=== PATIENT | male | born 1970 | race Caucasian/White ===

== ENCOUNTER 2019-10-24 13:31 | Emergency (ER) | payer OTHER ==
[~2019-10-24] VITALS: Ht 177.8 cm; Wt 80.4 kg
[2019-10-24] MEDS ORDERED: IV NORMAL SALINE 1,000ML 1,000 ML IV SCH (13:49)
--- NOTE | 2019-10-24 13:53 | PHYS DOC ---
Past History Past Medical History: Depression Smoking: Cigarettes Drug Use: Marijuana Adult General Chief Complaint Chief Complaint: NAUSEA/VOMITING/DIARRHEA HPI HPI Patient is a 49-year-old male who presents to the emergency department for evaluation. He states he has been having recurrent episodes of vomiting for the past year, as well as frequent episodes of diarrhea. He states he began vomiting more frequently over the past few days, and had some blood in his emesis the past 2 days, although not every time. He reports some blood streaks mixed with his emesis, not vomiting pure blood. Denies any dizziness or lightheadedness or pain. He states he saw , a family physician, several months ago who prescribed an unknown medication that he is supposed to take to "coat his esophagus" but he is uncertain of the name of the medication. He does admit to smoking marijuana daily. I discussed importance of close follow-up and return precautions. Review of Systems Review of Systems Constitutional: Denies fever or chills [] Eyes: Denies change in visual acuity, redness, or eye pain [] HENT: Denies nasal congestion or sore throat [] Respiratory: Denies cough or shortness of breath [] Cardiovascular: The patient denies any shortness of breath, chest pain, palpitations, or orthopnea [] GI: No additional information not addressed in HPI [] : Denies dysuria or hematuria [] Musculoskeletal: Denies back pain or joint pain [] Integument: Denies rash or skin lesions [] Neurologic: Denies headache, focal weakness or sensory changes [] Endocrine: Denies polyuria or polydipsia [] All other systems were reviewed and found to be within normal limits, except as documented in this note. Allergies Allergies Allergies Coded Allergies Type Severity Reaction Last Updated Verified No Known Drug Allergies 10/24/19 No Physical Exam Physical Exam PHYSICAL EXAM: CONSTITUTIONAL: Well developed, well nourished HEAD: normocephalic, atraumatic EENT: PERRL, EOMI. Conjunctivae normal color, sclerae non-icteric; moist mucous membranes. NECK: Supple, non-tender; no meningismus. LUNGS: Lungs CTA, breathing even and unlabored. Normal air movement. HEART: Regular rate and rhythm, no murmur CHEST: No deformity; non-tender ABDOMEN: The abdomen is soft, and non-tender, no masses or bruits. EXTREM: Normal ROM; no deformity, no calf tenderness. Normal pulses palpable in all extremities. There is no pedal edema. SKIN: No rash; no diaphoresis NEURO: Alert; normal speech and cognition; CN's grossly intact; strength grossly intact without focal deficit. BACK: No CVA TTP. Current Patient Data Vital Signs Vital Signs Date Time Temp Pulse Resp B/P (MAP) Pulse Ox O2 Delivery O2 Flow Rate FiO2 10/24/19 13:42 99.3 98 18 146/105 (119) 99 Room Air Lab Results Laboratory Tests Test 10/24/19 14:08 10/24/19 14:21 White Blood Count 7.4 x10^3/uL Red Blood Count 5.88 x10^6/uL Hemoglobin 18.3 g/dL Hematocrit 55.0 % Mean Corpuscular Volume 94 fL Mean Corpuscular Hemoglobin 31 pg Mean Corpuscular Hemoglobin Concent 33 g/dL Red Cell Distribution Width 13.6 % Platelet Count 202 x10^3/uL Neutrophils (%) (Auto) 66 % Lymphocytes (%) (Auto) 25 % Monocytes (%) (Auto) 8 % Eosinophils (%) (Auto) 0 % Basophils (%) (Auto) 1 % Neutrophils # (Auto) 4.9 x10^3uL Lymphocytes # (Auto) 1.8 x10^3/uL Monocytes # (Auto) 0.6 x10^3/uL Eosinophils # (Auto) 0.0 x10^3/uL Basophils # (Auto) 0.1 x10^3/uL Sodium Level 135 mmol/L Potassium Level 3.2 mmol/L Chloride Level 95 mmol/L Carbon Dioxide Level 29 mmol/L Anion Gap 11 Blood Urea Nitrogen 22 mg/dL Creatinine 1.4 mg/dL Estimated GFR (Cockcroft-Gault) 54.3 BUN/Creatinine Ratio 16 Glucose Level 116 mg/dL Calcium Level 9.5 mg/dL Total Bilirubin 0.9 mg/dL Aspartate Amino Transf (AST/SGOT) 27 U/L Alanine Aminotransferase (ALT/SGPT) 26 U/L Alkaline Phosphatase 115 U/L Troponin I Quantitative < 0.017 ng/mL Total Protein 8.5 g/dL Albumin 4.2 g/dL Albumin/Globulin Ratio 1.0 Lipase 207 U/L Urine Collection Type Unknown Urine Color Sherrie Urine Clarity Hazy Urine pH 5.5 Urine Specific [place] >=1.030 Urine Protein Urine Glucose (UA) mg/dL Urine Ketones (Stick) mg/dL Urine Blood Urine Nitrite Urine Bilirubin Neg Urine Urobilinogen Dipstick mg/dL Urine Leukocyte Esterase Urine RBC 1-2 /HPF Urine WBC 1-4 /HPF Urine Squamous Epithelial Cells Few /LPF Urine Bacteria 0 /HPF Urine Hyaline Casts Many /HPF Urine Mucus Marked /LPF Urine Opiates Screen Neg Urine Methadone Screen Neg Urine Barbiturates Neg Urine Phencyclidine Screen Neg Urine Amphetamine/Methamphetamine Neg Urine Benzodiazepines Screen Neg Urine Cocaine Screen Neg Urine Cannabinoids Screen Pos Urine Ethyl Alcohol Neg Current Medications Medications (Trade) Dose Ordered Sig/Tarun Route PRN Reason Start Time Stop Time Status Last Admin Dose Admin Sodium Chloride 1,000 ml @ 1,000 mls/hr Q1H IV 10/24/19 13:49 10/24/19 14:48 DC 10/24/19 13:49 Potassium Chloride (Klor-Con) 40 meq 1X ONCE PO 10/24/19 15:30 10/24/19 15:32 DC 10/24/19 15:30 EKG EKG Normal sinus rhythm at a rate of 80 beats for minute, normal axis, normal intervals, nonspecific ST/T changes.[][] Radiology/Procedures Radiology/Procedures [] Course & Med Decision Making Course & Med Decision Making Pertinent Lab studies reviewed. (See chart for details) []3:50 PM: The patient's condition remained stable. He has not had any further emesis in the emergency department. I discussed test results with the patient, the importance of stopping marijuana abuse, the importance of close outpatient PCP and GI follow-up, and return precautions. Dragon Disclaimer Dragon Disclaimer This electronic medical record was generated, in whole or in part, using a voice recognition dictation system. Departure Departure: Impression: Primary Impression: Nausea, vomiting and diarrhea Additional Impression: Cannabis hyperemesis syndrome concurrent with and due to cannabis abuse Disposition: 01 HOME, SELF-CARE Condition: STABLE Referrals: COREY ORELLANA MD Patient Instructions: Diarrhea, Marijuana Abuse and Chemical Dependency, Nausea and Vomiting Scripts Ondansetron (ONDANSETRON ODT) 4 Mg Tab.rapdis 1 TAB PO PRN Q6-8HRS for N/V, #15 TAB Prov: WU SILVA MD 10/24/19 Problem Qualifiers WU SILVA MD Oct 24, 2019 13:53
--- NOTE | 2019-10-24 14:13 | EKG ---
[address] [address] Test Date: 2019-10-24 Test Time: 14:09:01 Pat Name: BELEM HUFFMAN Department: Room: Gender: M Head Chopper: : 1970 Requested By: WU SILVA Order Number: [id number] Reading MD: Measurements Intervals [place] Rate: 80 P: 52 [place]: 150 QRS: 40 QRSD: 88 T: 43 QT: 378 QTc: 440 Interpretive Statements SINUS RHYTHM QRS(T) CONTOUR ABNORMALITY CONSIDER ANTEROLATERAL MYOCARDIAL DAMAGE POSSIBLY ABNORMAL ECG RI6.01 No previous ECG available for comparison
[2019-10-24 14:28] LABS: BASO # 0.1 x10^3/uL (0.0-0.2); BASO % 1 % (0-3); EOS % 0 % (0-3); HEMOGLOBIN 18.3 g/dL (13.0-17.5); LYMPH # 1.8 x10^3/uL (1.0-4.8); LYMPH % 25 % (24-48); MEAN CORPUSCULAR HEMOGLOBIN 31 pg (25-35); MEAN CORPUSCULAR HGB CONC 33 g/dL (31-37); MEAN CORPUSCULAR VOLUME 94 fL (79-100); MONO # 0.6 x10^3/uL (0.0-1.1); MONO % 8 % (0-9); NEUT # 4.9 x10^3uL (1.8-7.7); NEUT % 66 % (31-73); PLATELET COUNT 202 x10^3/uL (140-400); RED BLOOD COUNT 5.88 x10^6/uL (4.30-5.70); RED CELL DISTRIBUTION WIDTH 13.6 % (11.5-14.5); WHITE BLOOD COUNT 7.4 x10^3/uL (4.0-11.0)
[2019-10-24 14:45] LABS: ALBUMIN 4.2 g/dL (3.4-5.0); CALCIUM 9.5 mg/dL (8.5-10.1); CREATININE 1.4 mg/dL (0.7-1.3); GFR 54.3; TOTAL BILIRUBIN 0.9 mg/dL (0.2-1.0); TOTAL PROTEIN 8.5 g/dL (6.4-8.2)
[2019-10-24 14:46] LABS: POTASSIUM 3.2 mmol/L (3.5-5.1)
[2019-10-24 15:00] LABS: AMPHETAMINE/METHAMPHETAMINE NEG (NEG); BARBITURATES NEG (NEG); BENZODIAZEPINES NEG (NEG); CANNABINOIDS POS (NEG); COCAINE NEG (NEG); METHADONE NEG (NEG); OPIATES NEG (NEG); PHENCYCLIDINE NEG (NEG)
[2019-10-24 15:18] LABS: BILIRUBIN,URINE NEG (NEG); CLARITY,URINE HAZY
[2019-10-24 15:19] LABS: BACTERIA,URINE 0 /HPF (0-FEW); HYALINE CASTS, URINE MANY /HPF; SQUAMOUS EPITHELIAL CELL,UR FEW /LPF
[2019-10-24 15:20] LABS: COLOR,URINE AMBER
[2019-10-24] MEDS ORDERED: POTASSIUM CHLORIDE 20 MEQ TABLET.ER. PO ONE (15:30)
[2019-10-24] MEDS ORDERED: ONDA4TAB12 PO (15:53)
[2019-10-24 16:23] VITALS: BP 132/89
== END 2019-10-24 16:23 | disposition home or self-care (01) ==
LOC: ER 13:31
DX: F12.288 Cannabis dependence with other cannabis-induced disorder (principal); R11.2 Nausea with vomiting, unspecified; R19.7 Diarrhea, unspecified; F17.210 Nicotine dependence, cigarettes, uncomplicated
CPT/HCPCS: 36415; 80053; 80307; 81001; 83690; 84484; 85025; 93005; 96360; 99285-25; J7030

== ENCOUNTER → 2019-11-06 | Outpatient (CLI) | payer OTHER ==
[2019-10-24 16:23] VITALS: BP 132/89
[~2019-11-06] MED LIST: ONDA4TAB12 PO
--- NOTE | 2019-11-06 11:08 | RAD ---
EXAM: ABDOMINAL ULTRASOUND. HISTORY: Nausea, vomiting and diarrhea. COMPARISON: None. FINDINGS: Sonographic evaluation of the abdomen was performed. The liver appears normal in parenchymal echotexture. There are no focal lesions. The spleen measures 10.3 cm. The gallbladder is partially decompressed. It contains echogenic nonshadowing material which may represent sludge or stones. There is no gallbladder wall thickening or pericholecystic fluid. There is no sonographic Piper sign. The common duct measures 6 mm. The visualized portions of the head of the pancreas reveal no abnormality. The right kidney measures 10.5 cm. Cortical thickness and echogenicity are preserved. There is no hydronephrosis. The left kidney measures 11.2 cm. Cortical thickness and echogenicity are preserved. There is no hydronephrosis. The visualized portions of the abdominal aorta and inferior vena cava are grossly patent and normal in caliber. IMPRESSION: 1. The gallbladder contains echogenic material consistent with sludge or stones. No sonographic evidence of acute cholecystitis. Electronically signed by: Francine Bravo MD (11/06/2019 11:05 AM) [facility]
== END | disposition home or self-care (01) ==
LOC: US 07:39
PROVIDERS: ATTEND Internal Medicine Gastroenterology
DX: R11.2 Nausea with vomiting, unspecified (principal); R19.7 Diarrhea, unspecified
CPT/HCPCS: 36415; 76700; 82710; 87329

== ENCOUNTER → 2019-11-23 | Outpatient (CLI) | payer OTHER ==
[2019-10-24 16:23] VITALS: BP 132/89
[~2019-11-23] VITALS: Ht 182.9 cm; Wt 81.6 kg
[~2019-11-23] MED LIST changes: +SINCALIDE 1.63 MCG in IV NORMAL SALINE 50ML 30 ML IV ONE
--- NOTE | 2019-11-23 13:34 | RAD ---
EXAM: Nuclear hepatobiliary scan. HISTORY: Nausea and vomiting. TECHNIQUE: Following intravenous administration of 5.5 mCi Tc 99m Choletec, anterior images of the abdomen were obtained at five minute intervals through one hour. Subsequently, 1.63 mcg Kinevac was administered and additional images to assess gallbladder ejection fraction were obtained. FINDINGS: There is prompt radiotracer uptake by the liver. No focal defect is seen. There is normal excretion into the biliary tree. The gallbladder is visualized within 10 minutes and there is free flow into the duodenum. The gallbladder ejection fraction is 63%. IMPRESSION: Normal radionuclide biliary scan. Electronically signed by: Aida Jaime MD (11/23/2019 1:30 PM) [id number]
== END | disposition home or self-care (01) ==
LOC: NM 11:22
PROVIDERS: ATTEND Internal Medicine Gastroenterology
DX: R11.2 Nausea with vomiting, unspecified (principal)
CPT/HCPCS: 78227; A9537; J2805

== ENCOUNTER → 2019-12-04 | Outpatient (CLI) | payer OTHER ==
[~2019-12-04] MED LIST changes: -SINCALIDE 1.63 MCG in IV NORMAL SALINE 50ML 30 ML IV ONE
[2019-12-06 15:08] LABS: H PYLORI IGA <9.0 units (0.0-8.9); H PYLORI IGM <9.0 units (0.0-8.9)
== END | disposition home or self-care (01) ==
LOC: PMG 14:32
PROVIDERS: ATTEND Family Medicine
DX: R11.0 Nausea (principal)
CPT/HCPCS: 36415; 86677